=== PATIENT | male | born 1945 | race Caucasian/White ===

== ENCOUNTER 2025-06-05 01:02 | Emergency (ER) | payer BC, SELFPAY ==
[2025-06-05 01:04] VITALS: BP 140/87; BMI 19.1
[2025-06-05 01:24] LABS: Hematocrit 38.3 % (39.0-52.0); Hemoglobin 13.4 g/dL (13.0-18.0); Mean Corp Hgb Conc. 35.0 g/dL (33.0-37.0); Mean Corpuscular Volume 80.5 fL (80.0-94.0); Nucleated Red Blood Cells % 0 % (-); Platelet Count 219 10^3/uL (130-400); Red Cell Dist. Width 15.6 % (11.5-14.5)
[2025-06-05 01:44] LABS: ALT (SGPT) 15 U/L (0-50); AST (SGOT) 27 U/L (17-59); Albumin 4.9 g/dl (3.5-5.0); Alkaline Phosphatase 74 U/L (38-126); Blood Urea Nitrogen 12 mg/dl (9-20); Calcium 10.5 mg/dl (8.4-10.2); Carbon Dioxide 23 mmol/L (22-30); Chloride 95 mmol/L (98-107); Estimated Creatinine Clearance 37 ml/min; Glucose 95 mg/dl (70-99); Lipase 115 U/L (23-300); Potassium 4.7 mmol/L (3.5-5.1); Sodium 128 mmol/L (135-145); Total Protein 9.4 g/dl (6.3-8.2); eGFR 51.13
[2025-06-05 02:00] VITALS: BP 136/62
[2025-06-05 03:00] VITALS: BP 144/62
--- NOTE | 2025-06-05 05:49 | ED.GENMED ---
History of Present Illness
General
Chief Complaint: Abdominal Pain
Source: patient and ambulance crew
Exam Limitations: none
Time Seen by Provider: 06/05/25 02:31
Nursing documentation reviewed up to this point in time: agreed with
History of Present Illness
History of Present Illness:
HISTORY OF PRESENT ILLNESS
The patient is a 79-year-old male with history of AAA endovascular repair and right renal artery stent 2022. He suffered an endoleak April 06 with retroperitoneal hematoma requiring hospitalization at [facility]. He has history of
A-fib chronically maintained on Eliquis. History of CHF. Presenting with chronic left lower quadrant abdominal pain that has persisted since March. He has had repeated imaging since that time showing no evidence of recurrent endovascular
leakage, no evidence of recurrent retroperitoneal hematoma. Most recent CTA of the chest abdomen pelvis was May 26 at [facility]. The patient reports that this pain is ongoing and is associated with episodes of elevated blood
pressure. He takes acetaminophen for the pain, which he describes as 'not bad usually.' His blood pressure, when controlled with nifedipine, remains within normal limits, most recently recorded at 136/62 mmHg. Along with chronic left lower quadrant
pain he admits to chronic constipation, giving himself enemas generally every 3 days. He admits that constipation is improved if he eats high-fiber foods. He has history of chronic kidney disease creatinine generally runs 1.4. He denies
difficulty urinating. He has not had a fever nor chills. No chest pain or coughing or shortness of breath. No dizziness nor lightheadedness. He has also noted an inability to sleep, with his which he associates with the leaking aneurysm. The
patient mentions attending follow-up appointments at [place], although the most recent planned appointment with his vascular surgeon was postponed to June. He experiences limited relief with medication and seeks guidance for the ongoing pain.
He arrives via EMS and requested to come to [facility] due to [place] affiliation. He is normally seen at [facility], ED. Most recently 9 days ago for similar complaint.
Records reviewed from that ED visit. As above, CT chest abdomen pelvis showed no endoleak, chronic/stable postsurgical findings.
Past History
Past History
ED Past Medical History: Arrthythmia (Atrial fibrillation), CHF, HTN, Hypercholesterolemia, Renal failure (Chronic kidney disease stage IIIa), Hypothyroidism, Psychiatric and Other (Abdominal aortic aneurysm, thoracic aortic aneurysm status post
endovascular repair. Abdominal endovascular leak March 2025; chronic hyponatremia; chronic insomnia)
ED Past Surgical History: Other (Endovascular AAA repair, hernia repair)
Social History
Tobacco: Non-smoker
Alcohol: None
Personal: Single
Living: alone
Employment: Retired
Family History
Family History: Other (Noncontributory)
Phy Exam
Physical Exam
Physical Exam:
GENERAL: 79-year-old gentleman appears his stated age, awake and alert, appears in no acute distress.
EYE: pupils equal and reactive. anicteric
NECK: Supple, nontender, no meningismus, no significant adenopathy.
ENT: posterior pharynx is clear, oral mucosa is moist. TM clear b/l, nares patent.
CARDIAC: Regular rate and rhythm. no murmur.
LUNGS: Clear breath sounds bilaterally, no acute respiratory distress, no wheezes/rales/rhonchi
ABDOMEN: Soft, nondistended, mild tenderness left lower quadrant with deep palpation only. With patient distraction, no appreciable abdominal tenderness is found. No r/g, no cvat. normoactive BS. No palpable masses.
NEUROLOGICAL: Alert and oriented x3, no focal neuro deficits.
SKIN: Warm and dry, normal color, skin intact. No rash.
MUSCULOSKELETAL: No C/C/E. peripheral pulses are full and equal b/l. No palpable tenderness.
PSYCH: Very mildly anxious, mildly depressed mood.
Course
Orders/Labs/Results
Orders:
Orders
06/05/25 01:07
EKG [Electrocardiogram (*1)] Urgent
Reason for Study: Tachycardia
EKG- Treatment ONCE
06/05/25 01:16
Complete Blood Count/With Diff Urgent
Comprehensive Metabolic Panel Urgent
Lipase Urgent
Abnormal Lab Results
06/05/25
01:16
Hct 38.3 L %
(39.0-52.0)
RDW 15.6 H %
(11.5-14.5)
MPV 10.7 H fL
(7.4-10.4)
Sodium 128 L mmol/L
(135-145)
Chloride 95 L mmol/L
(98-107)
Creatinine 1.4 H mg/dL
(0.7-1.3)
Calcium 10.5 H mg/dl
(8.4-10.2)
Total Protein 9.4 H g/dl
(6.3-8.2)
06/05/25 01:16
06/05/25 01:16
Vital Signs
Initial and Last Documented VS:
Initial Vital Signs
Temp Pulse Resp BP Pulse Ox
97.6 F 72 16 140/87 100
06/05/25 01:04 06/05/25 01:04 06/05/25 01:04 06/05/25 01:04 06/05/25 01:04
Last Documented Vital Signs
Temp Pulse Resp BP Pulse Ox
97.6 F 54 15 144/62 98
06/05/25 03:00 06/05/25 03:45 06/05/25 03:45 06/05/25 03:00 06/05/25 05:50
MDM/Problems Addressed
Differential Diagnosis Includes:
DIFFERENTIAL DIAGNOSIS
The Differential Diagnosis includes, in no particular order and is not limited to:
1. Complications from abdominal aortic aneurysm repair.
2. Gastrointestinal obstruction or ileus.
3. Chronic constipation due to medication or lifestyle.
4. Renal colic.
5. Diverticulitis.
6. Ischemic colitis.
7. Hypertensive crises.
8. Medication side effects.
9. Musculoskeletal pain referred from the back.
10. Stress-related symptomatology due to chronic pain.
MDM/Problems Addressed:
Chronic left lower quadrant abdominal pain
Chronic insomnia
Chronic constipation
Overall appears stable.
Vital signs within normal limits.
Overall comfortable with no appreciable abdominal tenderness with patient distraction.
Patient initially unclear as to the last CAT scan, he believed at least a month or so ago.
Upon review of records however patient presented to [facility] just 1 week ago with similar left lower quadrant pain and underwent CT angiogram of the chest abdomen pelvis which showed stable/chronic endovascular repairs of thoracic as
well as abdominal aorta with no evidence of endoleak.
EKG shows normal sinus rhythm at 60, first-degree AV block. LVH. No acute ST-T wave abnormalities.
Will check labs and continue to observe. If labs are unremarkable, stable from previous, at this point I do not believe repeat CT angiogram will be required.
Patient notes that left lower quadrant pain has been a chronic issue for at least the past 2 months perhaps longer and has been addressed by his vascular surgeon as well as PCP.
He has been taking Tylenol and is prescribed tramadol but states this has been ineffective.
Prior history of substance abuse thus stronger narcotics are to be avoided and patient agrees with this plan.
Chronic conditions affecting care:
History of thoracic aortic aneurysm repair, abdominal aortic aneurysm repair with history of endovascular leak March of this year.
Chronic conditions affecting care: Cardiomyopathy (History of CHF) and Arrhythmia (Atrial fibrillation)
*Pulse Oximetry
SaO2: 98
Oxygen Mode of Delivery: Room air
Patient hypoxic: no
*EKG
Interpreted by ED Provider?: Yes
Rate: normal
Rhythm: sinus
[place]: left axis deviation
Interval: first degree heart block
QRS Pattern: left vent hypertrophy
Ischemia: no ischemia
*[employer] Interpretation
Rate: normal
Interpretation: normal
Rhythm: sinus
*Critical Care Note
Total Time (30-74mins, 75-104mins- exclusive of procedures): Not Applicable
Update Note
Update Note:
Patient continues to appear comfortable and remains hemodynamically stable
Labs are unremarkable with uptrend in hemoglobin.
Very mild but stable hyponatremia. Creatinine 1.4, at his baseline.
I suspect chronic left lower quadrant pain may be chronic constipation in nature however nothing in history nor exam to suggest obstruction nor significant stool burden.
He may also have an element of radicular lumbar back pain.
Encouraged follow-up with PCP, vascular surgeon and could consider consult with pain management.
ED Attending Note
-
Portions of this chart may have been created with voice recognition software.� Occasional wrong word or��sound alike� substitutions may have occurred due to the inherent limitations of voice recognition software.
Discharge Plan
Departure
Patient Disposition: Home (Routine Discharge)
Date of Disposition: 06/05/25
Time of Disposition: 05:50
Patient with high blood pressure during this ER visit?: No
Condition: Good
Discharge Problem:
Chronic left lower quadrant pain
Instructions: Constipation, Adult (DC), Abdominal Pain
Referrals:
Caitie Coats PA-C [Family Provider, Family Practice] - Call in 1-3 days for appt
Interventions
Interventions:
*Risk Screen - Suicide Last Done: 06/05/25 01:04
*General Assessment Last Done: 06/05/25 01:04
*Neglect/Abuse Screening Last Done: 06/05/25 01:04
*ED COVID-19 Vaccine History Last Done: 06/05/25 01:04
*ED Influenza Vaccine History Last Done: 06/05/25 01:04
[facility] Fall Risk Assessment Tool Last Done: 06/05/25 01:22
[facility]-[id number]-[id number] Assessment Last Done: 06/05/25 01:19
Discharge Date and Time
Print Language: ANGUILLAN
== END 2025-06-05 06:51 | disposition home or self-care (01) ==
LOC: EMR 01:02
PROVIDERS: Emergency Medicine; EMERGENCY PHYSICIAN Emergency Medicine; FAMILY PHYSICIAN Physician Assistant
DX: R10.32 Left lower quadrant pain (principal); G89.29 Other chronic pain; E03.9 Hypothyroidism, unspecified; E78.00 Pure hypercholesterolemia, unspecified; I13.0 Hypertensive heart and chronic kidney disease with heart failure and stage 1 through stage 4 chronic kidney disease, or unspecified chronic kidney disease; N18.31 Chronic kidney disease, stage 3a; I42.9 Cardiomyopathy, unspecified; I48.91 Unspecified atrial fibrillation; Z79.01 Long term (current) use of anticoagulants; Z86.79 Personal history of other diseases of the circulatory system
CPT/HCPCS: 99284; 80053; 83690; 85025; 93005